=== PATIENT | male | born 1990 | race Caucasian/White ===

== ENCOUNTER 2017-05-11 20:40 | Emergency (ER) | payer MEDICAID ==
[~2017-05-11] VITALS: Ht 203.2 cm; Wt 99.8 kg
[2017-05-11 21:52] VITALS: BP 136/79
== END 2017-05-11 23:26 | disposition left against medical advice (07) ==
LOC: ER 20:48
DX: S01.511A Laceration without foreign body of lip, initial encounter (principal); Z53.21 Procedure and treatment not carried out due to patient leaving prior to being seen by health care provider; X58.XXXA Exposure to other specified factors, initial encounter; Y93.89 Activity, other specified; Y92.89 Other specified places as the place of occurrence of the external cause; Y99.8 Other external cause status